=== PATIENT | female | born 1950 | race Caucasian/White ===

== ENCOUNTER 2020-09-29 13:02 | Outpatient (CLI) | payer MEDICARE, SELFPAY ==
--- NOTE | 2020-09-29 13:12 | XRR_ITS ---
PROCEDURE INFORMATION: Exam: XR Lumbosacral Spine Exam date and time: 09/29/2020 1:56 PM Age: 69 years old Clinical indication: Low back pain TECHNIQUE: Imaging protocol: XR of the lumbosacral spine. Views: 2 or 3 views. COMPARISON: CT abdomen pelvis w con* [id number] 04/01/2019 10:33 AM FINDINGS: Bones/joints: There is mild chronic loss of height of L4 unchanged from prior study. Lumbar vertebra are otherwise intact. No focal osseous lesion. Disc spaces are intact. Vertebral alignment is normal. Soft tissues: Unremarkable. XR/XR lumbar spine 2-3V* [id number] IMPRESSION: 1. Mild chronic L4 compression. 2. No acute findings.
--- NOTE | 2020-09-29 13:12 | XRR_ITS ---
PROCEDURE INFORMATION: Exam: XR Right Hip with Pelvis when Performed Exam date and time: 09/29/2020 1:56 PM Age: 69 years old Clinical indication: Hip pain; Right hip TECHNIQUE: Imaging protocol: XR Right hip with pelvis when performed. Views: 1 view. COMPARISON: CT abdomen pelvis w con* [id number] 04/01/2019 10:33 AM FINDINGS: Bones/joints: There is no fracture. There is no evidence of avascular necrosis of the femoral head. There is no focal osseous lesion. There is a lateral acetabular osteophyte. There is a greater trochanter osteophyte. Soft tissues: Unremarkable. Vasculature: There are atherosclerotic arterial calcifications. XR/XR hip RT 2-3V wo/w pel* [id number] IMPRESSION: 1. Mild osteoarthritis of the right hip. 2. No acute findings.
== END 2020-09-29 13:03 | disposition home or self-care (01) ==
LOC: RAD 13:07
PROVIDERS: PCP Electrodiagnostic Medicine; Visit Provider Electrodiagnostic Medicine
DX: M54.16 Radiculopathy, lumbar region (principal); M54.30 Sciatica, unspecified side; S32.048A Other fracture of fourth lumbar vertebra, initial encounter for closed fracture; M16.11 Unilateral primary osteoarthritis, right hip
CPT/HCPCS: 72100; 73502

== ENCOUNTER 2021-03-11 20:00 | Outpatient (CLI) | payer MEDICARE, SELFPAY | END 2021-03-11 20:01 | disposition home or self-care (01) | LOC: SLEEP 03-15 08:00 | PROVIDERS: PCP Electrodiagnostic Medicine; Visit Provider Electrodiagnostic Medicine | DX: G47.33 Obstructive sleep apnea (adult) (pediatric) (principal) | CPT/HCPCS: 95810 ==

== ENCOUNTER 2021-07-03 18:10 | Emergency (ER) | payer MEDICARE, SELFPAY ==
[2021-07-03 18:23] VITALS: BP 197/65; PULSE 79; RESP 16; TEMP 36.4; O2SAT 99; BMI 24.7
[2021-07-03 18:24] LABS: Glucose Point of Care 97 mg/dL (70-110)
--- NOTE | 2021-07-03 18:42 | W.ED.GENADLT ---
HPI - General Adult General: Chief complaint: General Medical Stated complaint: HYPOGLYCEMIA Time Seen by Provider: 07/03/21 18:13 History of Present Illness: HPI narrative: 70-year-old female diabetic who has been having trouble keeping her blood sugar up today. She had eaten some cookies, she noticed her blood sugar was low. This did not seem to help, so she called the ambulance. On the way here she received 2 oral doses of glucose, with improvement in her sugar. She states that she feels fine right now. Her blood glucose came up to 123. She denies any recent illness including fever, diarrhea, vomiting, cough, etc. Onset (ago): hour(s) Location: genitals Radiation: non-radiation Quality: other Pain Consistency: other Relieving factors: eating Exacerbating factors: none Associated symptoms: Reports confusion (Resolved), diaphoresis and nausea (Resolved); Deny chest pain, cough, decreased appetite, dyspnea, fevers/chills, headache(s), rash, short of breath or vomiting Review of Systems Const: Reports: diaphoresis; Denies: fever(s) Card: Denies: chest pain Resp: Denies: dyspnea GI: Reports: nausea (Resolved); Denies: vomiting Skin/Breast: Denies: rash Neuro: Reports: confusion (Resolved); Denies: headache(s) Physical Exam Const: COMMON NORMALS: no acute distress GENERAL APPEARANCE: not ill appearing and not frail appearing ORIENTATION/CONSCIOUSNESS: Yes awake HENMT: COMMON NORMALS: normocephalic HEAD & SCALP: normocephalic Eye: COMMON NORMALS: Equal, round and reactive pupils present and EOMs intact bilaterally PUPIL: Yes Equal, round and reactive pupils present Chest: COMMONS NORMALS: normal inspection of the chest Resp: COMMON NORMALS: normal respiratory effort and clear to auscultation bilaterally AUSCULTATION: clear to auscultation bilaterally Cardio: COMMON NORMALS: regular rate and regular rhythm RATE: regular rate RHYTHM: regular rhythm GI: COMMON NORMALS: Normal to inspection, nondistended, normoactive bowel sounds present, Soft to palpation and non-tender PALPATION: Yes Soft to palpation Neuro: YE COMA SCALE: document GCS findings [place] coma scale eye opening: Spontaneous [place] coma scale verbal response: Orientated [place] coma scale motor response: Obey commands Ye coma scale total score: 15 Course Vital Signs: Vital signs: Vital Signs Temperature 97.6 F 07/03/21 18:23 Pulse Rate 79 07/03/21 18:23 Respiratory Rate 16 07/03/21 18:23 Blood Pressure 197/65 07/03/21 18:23 Pulse Oximetry 99 07/03/21 18:23 MDM - General Adult MDM Narrative: Medical decision making narrative: 70-year-old female with hypoglycemia. After oral glucose challenge, her blood glucose is remaining up. Electrolytes are normal. Her creatinine is 1.6. She appears to have some prerenal azotemia could be responsible for her low blood sugar given her Lantus could be sticking around a bit. She was told to push oral fluids for hydration for the next 24 hours. She will check her sugar often Lab Data: Labs: Lab Results 07/03/21 07/03/21 07/03/21 18:00 18:00 18:22 WBC 8.8 10^3/uL 10^3/ uL (4.0-10.0) RBC 4.07 10^6/uL L 10 ^6/uL (4.1-5.3) Hgb 11.7 g/dL g/dL (11.5-15.3) Hct 37.0 % % (37.0-47.0) MCV 90.9 fl fl (81-99) MCH 28.7 pg pg (28.0-34.0) MCHC 31.6 g/dL g/dL (30.0-36.0) RDW 12.3 % % (12.1-15.1) Plt Count 227 10^3/cmm 10^3 /cmm (130-400) MPV 11.2 fL H fL (7.4-10.4) Neut % (Auto) 65.4 % % Lymph % (Auto) 25.5 % % Glenn % (Auto) 6.2 % % Eos % (Auto) 1.9 % % Baso % (Auto) 0.7 % % Neut # (Auto) 5.73 10^3/uL 10^3 /uL (1.8-7.7) Lymph # (Auto) 2.2 10^3/uL 10^3/ uL (0.8-4.8) Glenn # (Auto) 0.5 10^3/uL 10^3/ uL (0.2-0.9) Eos # (Auto) 0.2 10^3/uL 10^3/ uL (0.0-0.8) Baso # (Auto) 0.1 10^3/uL 10^3/ uL (0.0-0.1) Nucleated RBC % (a uto) 0 % % Nucleated RBCs # 0.0 /100WBC /100W BC Sodium 141 mmol/L mmol/L (136-145) Potassium 4.0 mmol/L mmol/L (3.5-5.1) Chloride 102 mmol/L mmol/L (98-107) Carbon Dioxide 25 mmol/L mmol/L (22-29) Anion Gap 18.0 (5-19) BUN 41 mg/dL H mg/dL (8-23) Creatinine 1.6 mg/dL H mg/dL (0.5-0.9) GFR Calculation Not Reportable Glucose 101 mg/dL mg/dL (65-115) POC Glucose 97 mg/dL mg/dL (70-110) Calculated Osmolal ity 302 mOsm/kg H mOs m/kg (285-295) Lactate Calcium 8.9 mg/dL mg/dL (8.5-10.5) Total Bilirubin 0.2 mg/dL mg/dL (0.15-1.2) AST 18 U/L U/L (0-32) ALT 14 U/L U/L (0-33) Alkaline Phosphata se 81 IU/L IU/L (35-105) Total Protein 7.6 g/dL g/dL (6.6-8.7) Albumin 4.4 g/dL g/dL (3.5-5.2) Globulin 3.2 g/dL g/dL (1.3-4.6) Urine Color Urine Appearance Urine pH Ur Specific Gravit y Urine Protein Urine Glucose (UA) Urine Ketones Urine Blood Urine Nitrate Urine Bilirubin Urine Urobilinogen Ur Leukocyte Teresa ase Urine RBC Urine WBC Ur Squamous Epith Cells Amorphous Sediment Urine Bacteria 07/03/21 07/03/21 07/03/21 19:38 19:49 19:55 WBC RBC Hgb Hct MCV MCH MCHC RDW Plt Count MPV Neut % (Auto) Lymph % (Auto) Glenn % (Auto) Eos % (Auto) Baso % (Auto) Neut # (Auto) Lymph # (Auto) Glenn # (Auto) Eos # (Auto) Baso # (Auto) Nucleated RBC % (a uto) Nucleated RBCs # Sodium Potassium Chloride Carbon Dioxide Anion Gap BUN Creatinine GFR Calculation Glucose POC Glucose 187 mg/dL H mg/dL (70-110) Calculated Osmolal ity Lactate 0.8 mmol/L mmol/L (0.5-2.2) Calcium Total Bilirubin AST ALT Alkaline Phosphata se Total Protein Albumin Globulin Urine Color Yellow (Yellow) Urine Appearance Clear (CLEAR) Urine pH 5 (5-7) Ur Specific Gravit y 1.010 (1.005-1.030) Urine Protein 2+ H (Negative) Urine Glucose (UA) Norm (Normal) Urine Ketones Negative (Negative) Urine Blood Neg (Negative) Urine Nitrate Negative (Negative) Urine Bilirubin Neg (Negative) Urine Urobilinogen Norm mg/dL mg/dL (Negative) Ur Leukocyte Teresa ase Negative (Negative) Urine RBC 0-4 /hpf H /hpf (0-2) Urine WBC 0-4 /hpf H /hpf (0-5) Ur Squamous Epith Cells 0-4 /hpf H /hpf (0-5) Amorphous Sediment Not Reportable Urine Bacteria Trace /hpf /hpf (NONE) Discharge Plan Discharge Patient Disposition: Home Clinical Impression: Hypoglycemia Condition: Stable Discharge Orders: Discharge ED (Routine); Ordered 07/03/21 Ordered By: Dwaine Lew Referrals: Eric Mckinney DO [Primary Care Provider] - 4-7 days Discharge Diet: Diabetic Discharge Activity: Increase activity as tolerated Patient Instructions: Hypoglycemia in a Person with Diabetes (ED) Activity Restrictions/Additional Instructions: Check your blood sugar often, every 2-3 hours tonight. Consider using half of your normal Lantus insulin dose this evening if you have not already taken it. Push oral fluids for the next 24 hours, as you are somewhat dehydrated which may have caused this episode. Return for fever, mental status changes, inability to regulate your blood glucose, other concerning symptoms Coding Level of Care Code ED Acid Concentrator for Titusg Fwd Exam Comprehensive
[2021-07-03 18:55] LABS: Basophils # 0.1 10^3/uL (0.0-0.1); Basophils % 0.7 %; Eosinophils # 0.2 10^3/uL (0.0-0.8); Eosinophils % 1.9 %; Hemoglobin 11.7 g/dL (11.5-15.3); Lymphocytes # 2.2 10^3/uL (0.8-4.8); Lymphocytes % 25.5 %; Mean Corpuscular HGB Conc 31.6 g/dL (30.0-36.0); Mean Corpuscular Hemoglobin 28.7 pg (28.0-34.0); Mean Corpuscular Volume 90.9 fl (81-99); Mean Platelet Volume 11.2 fL (7.4-10.4); Monocytes # 0.5 10^3/uL (0.2-0.9); Monocytes % 6.2 %; Neutrophils # 5.73 10^3/uL (1.8-7.7); Neutrophils % 65.4 %; Nucleated Red Blood Cells % 0 %; Platelet Count 227 10^3/cmm (130-400); Red Blood Count 4.07 10^6/uL (4.1-5.3); Red Cell Distribution Width 12.3 % (12.1-15.1); White Blood Count 8.8 10^3/uL (4.0-10.0)
[2021-07-03 19:44] LABS: Alanine Aminotransferase 14 U/L (0-33); Albumin Level 4.4 g/dL (3.5-5.2); Alkaline Phosphatase 81 IU/L (35-105); Aspartate Amino Transferase 18 U/L (0-32); Blood Urea Nitrogen 41 mg/dL (8-23); Calcium 8.9 mg/dL (8.5-10.5); Carbon Dioxide 25 mmol/L (22-29); Chloride 102 mmol/L (98-107); Globulin 3.2 g/dL (1.3-4.6); Glucose 101 mg/dL (65-115); Osmolality Calculated 302 mOsm/kg (285-295); Sodium 141 mmol/L (136-145); Total Bilirubin 0.2 mg/dL (0.15-1.2); Total Protein 7.6 g/dL (6.6-8.7)
[2021-07-03 19:47] LABS: Creatinine Clr Calc Pharmacy 28.5193
[2021-07-03 19:54] LABS: Glucose Point of Care 187 mg/dL (70-110)
[2021-07-03 20:07] LABS: Add Urine Microscopic? YES; Bilirubin Urine Neg (Negative); Blood Urine Neg (Negative); Glucose Urine UA Norm (Normal); Ketones Urine Negative (Negative); Leukocyte Esterase Urine Negative (Negative); Nitrate Urine Negative (Negative); Protein Urine 2+ (Negative); Urine Appearance Clear (CLEAR); Urine Color Yellow (Yellow); Urobilinogen Urine Norm (Negative); pH Urine 5 (5-7)
[2021-07-03 20:09] LABS: Lactate (Lactic Acid level) 0.8 mmol/L (0.5-2.2)
[2021-07-03 20:14] LABS: RBC Urine 0-4 /hpf (0-2); Squamous Epithelial Cell Urine 0-4 /hpf (0-5); WBC Urine 0-4 /hpf (0-5)
[2021-07-03 20:15] LABS: Add Urine Culture? No; Bacteria Urine TRACE /hpf
[2021-07-03 20:56] VITALS: BP 177/81; PULSE 69; RESP 14; O2SAT 98
== END 2021-07-03 20:55 | disposition home or self-care (01) ==
PROVIDERS: Emergency Provider Emergency Medicine; PCP Electrodiagnostic Medicine
DX: E16.2 Hypoglycemia, unspecified (principal)
CPT/HCPCS: 36416; 80053; 81001; 82962; 83605; 85025; 99283

== ENCOUNTER → 2022-03-08 08:27 | Outpatient (BNVA) | payer MEDICARE, SELFPAY | PROVIDERS: PCP Family Medicine; Visit Provider Clinical Nurse Specialist Adult Health | DX: E11.9 Type 2 diabetes mellitus without complications (principal); I10 Essential (primary) hypertension; F32.9 Major depressive disorder, single episode, unspecified; M25.50 Pain in unspecified joint; M62.81 Muscle weakness (generalized) | CPT/HCPCS: 80053; 80061; 82306; 83036; 84443; 85025; 85651; 86140; 86431; 86618; 86666; 86757 ==

== ENCOUNTER → 2022-03-09 11:15 | Outpatient (BNVA) | payer MEDICARE, SELFPAY | PROVIDERS: PCP Family Medicine; Visit Provider Clinical Nurse Specialist Adult Health | DX: D64.9 Anemia, unspecified (principal) | CPT/HCPCS: 82270; 82607; 82728; 83550; 84466 ==

== ENCOUNTER → 2022-04-05 11:48 | Outpatient (BNVA) | payer MEDICARE, SELFPAY | PROVIDERS: PCP Family Medicine; Visit Provider Family Medicine | DX: D64.9 Anemia, unspecified (principal); G47.33 Obstructive sleep apnea (adult) (pediatric); M25.50 Pain in unspecified joint; N28.9 Disorder of kidney and ureter, unspecified; M62.81 Muscle weakness (generalized); F32.9 Major depressive disorder, single episode, unspecified; I10 Essential (primary) hypertension; E11.9 Type 2 diabetes mellitus without complications | CPT/HCPCS: 86160; 86162; 86235; 86255; 86376 ==

== ENCOUNTER → 2022-05-31 15:15 | Outpatient (BNVA) | payer MEDICARE, SELFPAY | PROVIDERS: PCP Family Medicine; Visit Provider Internal Medicine | DX: R76.8 Other specified abnormal immunological findings in serum (principal); L40.9 Psoriasis, unspecified; M25.9 Joint disorder, unspecified; Z11.59 Encounter for screening for other viral diseases; R11.2 Nausea with vomiting, unspecified; E55.9 Vitamin D deficiency, unspecified; N28.9 Disorder of kidney and ureter, unspecified; D64.9 Anemia, unspecified | CPT/HCPCS: 36415; 72100; 72202; 73120; 80053; 82024; 82533; 82550; 82784; 83516; 84100; 85651; 86003; 86008; 86140; 86704; 86803; 87340; 99204 ==

== ENCOUNTER → 2022-07-05 13:11 | Outpatient (BNVA) | payer MEDICARE, SELFPAY | PROVIDERS: PCP Family Medicine; Visit Provider Internal Medicine | DX: M25.9 Joint disorder, unspecified (principal); G25.9 Extrapyramidal and movement disorder, unspecified; R11.2 Nausea with vomiting, unspecified; E55.9 Vitamin D deficiency, unspecified; R76.8 Other specified abnormal immunological findings in serum; N28.9 Disorder of kidney and ureter, unspecified; D64.9 Anemia, unspecified; Z91.018 Allergy to other foods | CPT/HCPCS: 99214 ==

== ENCOUNTER → 2022-11-24 10:09 | Outpatient (BNVA) | payer MEDICARE, SELFPAY | PROVIDERS: PCP Clinical Nurse Specialist Adult Health; Visit Provider Clinical Nurse Specialist Adult Health | DX: F32.9 Major depressive disorder, single episode, unspecified (principal); I10 Essential (primary) hypertension; M54.30 Sciatica, unspecified side | CPT/HCPCS: 80053 ==

== ENCOUNTER 2022-12-27 12:58 | Outpatient (CLI) | payer MEDICARE, SELFPAY ==
--- NOTE | 2022-12-27 13:16 | XR_ITS ---
WS: [id number] Exam: XR sacroiliac jts m 3V [id number] Date/Time of Exam: 12/27/2022 1:31 PM Reason For Exam: left si joint pain Comparison 05/31/2022. Mild/moderate bilateral SI joint DJD noted. No fracture or dislocation. No bone destruction. The SI j oints are open. XR/XR sacroiliac jts m 3V [id number] IMPRESSION: 1. 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
== END 2022-12-27 12:59 | disposition home or self-care (01) ==
PROVIDERS: PCP Clinical Nurse Specialist Adult Health; Visit Provider Clinical Nurse Specialist Adult Health
DX: M46.1 Sacroiliitis, not elsewhere classified (principal); M54.32 Sciatica, left side; D64.9 Anemia, unspecified; E55.9 Vitamin D deficiency, unspecified; N28.9 Disorder of kidney and ureter, unspecified
CPT/HCPCS: 72202; 80048; 82306; 82607

== ENCOUNTER → 2023-03-23 13:05 | Outpatient (BNVA) | payer MEDICARE, SELFPAY | PROVIDERS: PCP Clinical Nurse Specialist Adult Health; Visit Provider Clinical Nurse Specialist Adult Health | DX: E11.9 Type 2 diabetes mellitus without complications (principal) | CPT/HCPCS: 80048; 83036 ==

== ENCOUNTER → 2023-09-27 15:33 | Outpatient (BNVA) | payer MEDICARE, SELFPAY | PROVIDERS: PCP Clinical Nurse Specialist Adult Health; Visit Provider Clinical Nurse Specialist Adult Health | DX: E11.9 Type 2 diabetes mellitus without complications (principal); E55.9 Vitamin D deficiency, unspecified | CPT/HCPCS: 80053; 82306; 83036; 84443; 85025 ==

== ENCOUNTER → 2023-11-10 08:10 | Outpatient (BNVA) | payer MEDICARE, SELFPAY | PROVIDERS: PCP Clinical Nurse Specialist Adult Health; Referring Provider Clinical Nurse Specialist Adult Health; Visit Provider Internal Medicine | DX: E78.2 Mixed hyperlipidemia; E11.319 Type 2 diabetes mellitus with unspecified diabetic retinopathy without macular edema; K31.84 Gastroparesis; N18.32 Chronic kidney disease, stage 3b; Z91.018 Allergy to other foods; E16.0 Drug-induced hypoglycemia without coma; T38.3X5A Adverse effect of insulin and oral hypoglycemic [antidiabetic] drugs, initial encounter; E11.22 Type 2 diabetes mellitus with diabetic chronic kidney disease; E11.649 Type 2 diabetes mellitus with hypoglycemia without coma; E11.40 Type 2 diabetes mellitus with diabetic neuropathy, unspecified; X58.XXXA Exposure to other specified factors, initial encounter; Z79.4 Long term (current) use of insulin | CPT/HCPCS: 99204 ==

== ENCOUNTER → 2023-12-01 09:38 | Outpatient (BNVA) | payer MEDICARE, SELFPAY | PROVIDERS: PCP Clinical Nurse Specialist Adult Health; Visit Provider Clinical Nurse Specialist Adult Health | DX: E78.2 Mixed hyperlipidemia (principal) | CPT/HCPCS: 80061 ==

== ENCOUNTER 2024-02-07 14:48 | Outpatient (CLI) | payer MEDICARE, SELFPAY ==
[2024-02-07 15:28] LABS: Estmated Average Glucose 174; Hemoglobin A1C 7.7 % (4.0-6.0)
[2024-02-07 15:31] LABS: Alanine Aminotransferase 13 U/L (0-33); Alkaline Phosphatase 85 U/L (35-105); Aspartate Amino Transferase 14 U/L (0-32); Blood Urea Nitrogen 28 mg/dL (8-23); Calcium 9.3 mg/dL (8.5-10.5); Carbon Dioxide 26 mmol/L (22-29); Chloride 101 mmol/L (98-107); Cholesterol 204 mg/dL (0-200); Globulin 3.1 g/dL (1.3-4.6); Glucose 231 mg/dL (65-115); HDL Cholesterol 60 mg/dL (60-100); LDL Cholesterol Calculated 123 mg/dL (50-129); LDL HDL Ratio 2.05 RATIO (0.00-3.22); Osmolality Calculated 299 mOsm/kg (285-295); Sodium 138 mmol/L (136-145); Total Bilirubin 0.3 mg/dL (0.15-1.2); Total Protein 7.1 g/dL (6.6-8.7); Triglycerides 106 mg/dL (0-150)
== END 2024-02-07 14:49 | disposition home or self-care (01) ==
LOC: LAB 14:49
PROVIDERS: PCP Clinical Nurse Specialist Adult Health; Visit Provider Internal Medicine
DX: E11.9 Type 2 diabetes mellitus without complications (principal); E11.8 Type 2 diabetes mellitus with unspecified complications; E78.2 Mixed hyperlipidemia
CPT/HCPCS: 36415; 80053; 80061; 83036

== ENCOUNTER → 2024-02-15 09:10 | Outpatient (BNVA) | payer MEDICARE, SELFPAY | PROVIDERS: PCP Clinical Nurse Specialist Adult Health; Visit Provider Internal Medicine | DX: E78.2 Mixed hyperlipidemia; E11.319 Type 2 diabetes mellitus with unspecified diabetic retinopathy without macular edema; K31.84 Gastroparesis; N18.32 Chronic kidney disease, stage 3b; Z91.018 Allergy to other foods; E16.0 Drug-induced hypoglycemia without coma; T38.3X5A Adverse effect of insulin and oral hypoglycemic [antidiabetic] drugs, initial encounter; E11.649 Type 2 diabetes mellitus with hypoglycemia without coma; E11.22 Type 2 diabetes mellitus with diabetic chronic kidney disease; X58.XXXA Exposure to other specified factors, initial encounter; Z79.4 Long term (current) use of insulin | CPT/HCPCS: 99214 ==

== ENCOUNTER → 2024-03-04 11:46 | Outpatient (BNVA) | payer MEDICARE, SELFPAY | PROVIDERS: PCP Clinical Nurse Specialist Adult Health; Visit Provider Internal Medicine | DX: E11.319 Type 2 diabetes mellitus with unspecified diabetic retinopathy without macular edema (principal); E78.2 Mixed hyperlipidemia; K31.84 Gastroparesis; N18.32 Chronic kidney disease, stage 3b; Z91.018 Allergy to other foods; E16.0 Drug-induced hypoglycemia without coma; T38.3X5A Adverse effect of insulin and oral hypoglycemic [antidiabetic] drugs, initial encounter; R03.0 Elevated blood-pressure reading, without diagnosis of hypertension; E11.22 Type 2 diabetes mellitus with diabetic chronic kidney disease; E11.649 Type 2 diabetes mellitus with hypoglycemia without coma; X58.XXXA Exposure to other specified factors, initial encounter; Z79.4 Long term (current) use of insulin | CPT/HCPCS: 99214 ==